=== PATIENT | female | born 1945 | race Caucasian/White ===

== ENCOUNTER 2017-09-26 12:09 | Inpatient (IN) | payer OTHER ==
--- NOTE | 2017-09-26 13:09 | EDPHY ---
H & P Stated Complaint: acute manic bipolar episode needs help with management Source: Patient, Family (Daughter) Exam Limitations: Clinical condition - Medical/Surgical History Hx Asthma: No Hx Chronic Respiratory Disease: No Hx Diabetes: No Hx Cardiac Disease: No Hx Renal Disease: No Hx Cirrhosis: No Hx Alcoholism: No Hx HIV/AIDS: No Hx Splenectomy or Spleen Trauma: No Other PMH: bipolar, kidney disease from [place], hypothyroid, infammatory disease - Social History Smoking Status: Never smoked Time Seen by Provider: 09/26/17 13:09 HPI/ROS: HPI: This is a 72-year-old female who presents with Chief Complaint: acute manic bipolar episode needs help with management Location: psych Quality: Mirella Duration: 1 month Signs and Symptoms:+ auditory hallucination, + paranoia, + insomnia, + delusional Timing: Worsening, acute on chronic Severity: Severe Context: Patient has a history of bipolar 1 disorder diagnosed over 40 years ago, presents accompanied by her daughter, who reports 1 month episode of manic episode that is rapidly worsening over the last few days. Daughter reports that patient is paranoid and is hearing auditory hallucinations. She is not sleeping. She is attempting to drive on psychiatric medications. She is very difficult to get along with and has had increased family discordance. and daughter do not feel safe with her at home. She has had inpatient psychiatric hospitalization in the past for similar episode of mirella. Patient reports that she is compliant with her psychiatric medications and daughter reports that she is noncompliant with taking her psychiatric medications. Denies any alcohol or drug use. Modifying Factors: Regular psychiatric medication Comment: ROS: see HPI Constitutional: No fever, no chills, no weight loss Eyes: No blurred vision Respiratory: No shortness of breath, no cough Cardiovascular: No chest pain Gastrointestinal: No nausea, no vomiting, no diarrhea Genitourinary: No dysuria Extremities: No myalgias Neurologic: No weakness, no numbness Skin: No rashes Hematologic: No bruising, no bleeding MEDICAL/SURGICAL/SOCIAL HISTORY: Medical history: bipolar, kidney disease from [place], hypothyroid, infammatory disease Surgical history: Denies Social history: with children. Family history noncontributory. CONSTITUTIONAL: Tidy, argumentative, elderly white female, awake and alert, no obvious distress HEENT: Atraumatic and normocephalic, PERRL, EOMI. Nares patent; no rhinorrhea; no nasal mucosal edema. Tympanic membranes clear. Oropharynx clear, no exudate and moist pink mucosa. Airway patent. No lymphadenopathy. No meningismus. Cardiovascular: Normal S1/S2, mild tachycardia, regular rhythm, without murmur rub or gallop. PULMONARY/CHEST: Symmetrical and nontender. Clear to auscultation bilaterally. Good air movement. No accessory muscle usage. ABDOMEN: Soft, nondistended, nontender, no rebound, no guarding, no peritoneal signs, no masses or organomegaly. No CVAT. EXTREMITIES: 2/2 pulses, strength 5/5, no deformities, no clubbing, no cyanosis or edema. NEUROLOGICAL: no focal neuro deficits. GCS 15. SKIN: Warm and dry, no erythema. no rash. Good capillary refill. PSYCH: Poor eye contact, + flight of ideas, tangential disorganized thought process, poor insight and judgment, + auditory hallucinations, no visual hallucinations, no suicidal ideation with a plan, no homicidal ideation, + paranoia ([place]) Constitutional: Initial Vital Signs Temperature (C) 36.7 C 09/26/17 12:14 Heart Rate 105 H 09/26/17 12:14 Respiratory Rate 18 09/26/17 12:14 Blood Pressure 172/106 H 09/26/17 12:14 O2 Sat (%) 97 09/26/17 12:14 O2 Delivery Mode Room Air Allergies/Adverse Reactions: aspirin Allergy (Verified 09/26/17 18:16) epinephrine Allergy (Verified 09/26/17 18:16) lidocaine [From [employer]] Allergy (Verified 09/26/17 18:16) Home Medications: Medication Instructions Recorded Acetaminophen [Tylenol ES 500 mg 500 - 1,000 mg PO Q6H PRN 09/26/17 (*)] Duloxetine HCl [Cymbalta] 20 mg PO BID 09/26/17 Furosemide [Lasix 20 MG (*)] 20 mg PO DAILY 09/26/17 Herbals/Supplements -Info Only 1 ea PO DAILY 09/26/17 LORazepam [Ativan (*)] 0.5 mg PO BID@12,17 PRN 09/26/17 LORazepam [Ativan (*)] 1 mg PO HS 09/26/17 Levothyroxine [Synthroid 75 mcg 75 mcg PO DAILY06 09/26/17 (*)] Nicotine Polacrilex [Nicorette gum 4 mg BC PRN PRN 09/26/17 (*)] OLANZapine [ZyPREXA 2.5 mg (*)] 2.5 mg PO HS 09/26/17 OLANZapine [Zyprexa] 5 mg PO HS 09/26/17 Vayacog 1 ea PO DAILY 09/26/17 Vitamin E Acetate [VITAMIN E] 400 unit PO HS 09/26/17 Medical Decision Making ED Course/Re-evaluation: Placed on M1 hold upon arrival due to patient being gravely disabled. Labs and UDS ordered. Ordered Zyprexa but daughter asked that we withhold as it causes significant sedation in the patient. Labs reviewed and grossly unremarkable. Waiting for urine drug screen. 1445: TLC at bedside. Urine drug screen is positive for benzodiazepine and patient has a prescription for Ativan. It is recommended that the patient be admitted for inpatient hospitalization. Dr. Funes has accepted patient at [address] [place] [address]. EMATLA form completed. This patient was seen under the supervision of my secondary supervising physician. I evaluated care for this patient independently. Discussed this patient with Dr. Jenkins. (Roro Morgan) The patient was evaluated and managed by the physician instruction assistant principal. I have reviewed this chart and I agree with the findings and plan of care as documented , as indicated by my signature. I am the secondary supervising physician. ( Jayla Jenkins) Differential Diagnosis: Differential diagnosis includes but is not limited to schizoaffective disorders , schizophrenia, bipolar disorder, mirella, psychosis. (Roro Morgan) - Data Points Laboratory Results: Laboratory Results 09/26/17 13:33 09/26/17 13:36 Medications Given: Acetaminophen (Tylenol) 500 - 1,000 mg PO Q6H PRN PRN Reason: Pain, Mild use first Stop: 03/26/18 11:04 Last Admin: 09/27/17 11:11 Dose: 500 mg Duloxetine HCl (Cymbalta) 20 mg PO DAILY BEV Stop: 03/26/18 08:59 Last Admin: 09/27/17 09:28 Dose: 20 mg Furosemide (Lasix) 20 mg PO DAILY BEV Stop: 03/26/18 08:59 Last Admin: 09/27/17 09:28 Dose: 20 mg Levothyroxine Sodium (Synthroid) 75 mcg PO DAILY06 BEV Stop: 03/26/18 08:59 Last Admin: 09/27/17 09:29 Dose: 75 mcg Lorazepam (Ativan) 0.5 - 1 mg PO Q4HRS PRN PRN Reason: Anxiety, Able to Take PO Stop: 03/25/18 19:54 Last Admin: 09/26/17 21:26 Dose: 1 mg Miscellaneous Medication (Vayacog) 1 ea PO DAILY BEV Stop: 03/26/18 08:59 Last Admin: 09/27/17 09:28 Dose: Not Given Discontinued Medications Olanzapine (Zyprexa Zydis) 5 mg PO EDNOW ONE Stop: 09/26/17 13:49 Last Admin: 09/26/17 14:02 Dose: Not Given Olanzapine (Zyprexa Zydis) 10 mg PO ONCE ONE Stop: 09/26/17 20:01 Last Admin: 09/26/17 21:26 Dose: 10 mg Departure - Departure Disposition: [facility] IP Clinical Impression: Severe bipolar affective disorder with psychosis, Bipolar disorder with severe mirella Condition: Fair
[2017-09-26] MEDS ORDERED: OLANZapine DISINTEGR 5 MG TAB PO ONE (13:48)
[2017-09-26 14:00] LABS: PLATELET COUNT 286 10^3/uL (150-400)
[2017-09-26] MEDS ORDERED: MAGNESIUM HYDROXIDE 30 ML UDCUP PO PRN (19:55)
[2017-09-26] MEDS ORDERED: MAG HYDROX/AL HYDROX/SIMETH 30 ML UDCUP PO PRN (19:55)
[2017-09-26] MEDS ORDERED: ACETAMINOPHEN 325 MG TAB PO PRN (19:55)
[2017-09-26] MEDS ORDERED: OLANZapine DISINTEGR 5 MG TAB PO PRN (19:56)
[2017-09-26] MEDS ORDERED: OLANZapine DISINTEGR 10 MG TAB PO ONE (20:00)
[2017-09-26] MEDS: LORazepam 0.5 MG TAB PO PRN (21:26)
--- NOTE | 2017-09-26 22:00 | ASMTTLCEVL ---
TLC Evaluation - Basic Information Evaluation Start Date and 09/26/2017 03:00 PM Time Hospital Status Answers: M1 Hold 72-hr M1 Hold Start Date 09/26/2017 01:50 PM and Time Patient statement Notes: "A manic episode." Narrative Notes: Pt is a 72 year old female presenting voluntarily with her daughter with worsening symptoms of mirella. Per daughter, for the past month, pt appears" normal one minute then depressed, delusional and psychotic" DOC states that pt becomes mistrusting of her HOC and believes her is going to kill her, will poison her food and does not want to take her medications if he gives them to her. DOC states that pt also has become paranoid around electronics. DOC states pt is unable to care for herself, not safe to be alone and her is not able to care for her. Per DOC, pt has long periods of stability and it appears her symptoms get worse every September and February. DOC states that pt recently had some med changes, but pt does not seem to be responding. DOC stated pt has had 3 psych evaluations in the past 2 weeks but she has not been hospitalized. Diagnosis History Notes: Pt has a hx of bipolar disorder. Prior suicide attempts Notes: Pt denies any prior SI and states she does not have SI now. DOC states that pt has made threats and written notes in the past. Prior hospitalizations Notes: Pt has a hx of 3 prior hospitalizations. The last one was 18 years ago. Treatment Responses Notes: Unk History of violence Notes: Pt denies any thoughts of HI. Psychiatrist: Dr Pato Stewart Medications (name, dosage, route, freq uency) Notes: Vayacog 310mg in AM; Levothyroxine .05 mg in AM; Cymbalta 20 mg in AM; Flurosemide 20 mg in AM; Tumeric 1 capsule in AM; Vitamin D3 2000 I.U. in PM;Cymbalta 20 mg in PM; Lorazepam 1 mg in PM; Vitamin E 400 I.U; Zyprexa 7.5 mg. Lorazepam .5 mg lunch and dinner. Tylenol PRN. Allergies/Reaction Notes: Aspirin, Lidocain and Novacaine Sleep Notes: WNL Appetite Notes: WNL Medical/Surgical history Notes: Pt reports a hx of arthritis, kidney disease ( advanced stages) and a "significant inflammatory disease) Pt has also had pneumonia twice. 4 years ago pt had to have surgery on an infected abscess she had on her lung after complications with pneumonia. 1 year ago, pt was hospitalized for high calcium levels for 10 days. Substance use history (frequency, intensity, his tory, duration) Notes: Pt denied any substance abuse hx. Pt stated she drinks ETOH on occasion. Utox was negative for all substances. Bal was .0. Family composition Notes: Pt's family consists of her adult daughter and . Need for family Answers: No participation in patient's care Family psychiatric/substance abuse history Notes: Pt stated her FOC "probally had bipolar, but it was never dx." Pt also reports that her paternal GMOC had bipolar disorder, although she was never dx. Developmental history Notes: Pt stated she grew up in [place] with both parents. Pt reports having a good relationship with her mother but not her father. Pt denies any childhood abuse. Pt reports she may have had concussions but was unable to give details. Abuse concerns Answers: None Marital status/children Notes: Pt has been for 50 years and has 1 adult daughter. Living situation Notes: Pt lives in [place] with her . Sexual history/orientation Notes: Heterosexual. Peer support/family strengths Notes: Pt stated, " Sometimes, I don't know." Education level/history Notes: Pt has a B.S in Education and a minor in science and social studies. Work history Notes: Pt is a retired high school counselor. Notes: None Legal Notes: None reported. Rastafarian/Spiritual Notes: None that would intefere with tx. Leisure Notes: Pt stated she enjoys reading. Collateral Notes: Daughter Taya. TLC Evaluation - Mental Status Exam Appearance: Answers: Appropriate Eye Contact: Answers: Good/Direct Mood: Answers: Irritable Affect: Answers: Agitated Guarded Behavior: Answers: Uncooperative Speech: Answers: Relevant Thought Process: Answers: Distracted Insight: Answers: Poor Judgement: Answers: Poor Manic Signs/Symptoms Answers: Irritability Mood Swings Delusions: Answers: Paranoid Ideation Pt reported to have Answers: No suicidal/self-injuring ideation/behavior? Pt reported to be making Answers: No suicidal/self-injuring threats? Pt reported to have Answers: No aggression/assault ideation/behavior? Pt reported to be making Answers: No aggression/assault threats? Pt exhibits inability to Answers: Yes care for self/grave disability? Ideation/behavior is Answers: Yes chronic? Patient has a specific Answers: No plan? History of Answers: Yes suicidal/self-injuring ideation, behavior, or threats? History of Answers: No aggressive/assaultive ideation, behavior, or threats? History of serious Answers: No physical harm to self/others while in treatment setting? TLC Evaluation - Suicide/Homicide Risk Suicide Risk Factors: Answers: < 20 or > 40 Years of Age Bipolar Disorder Rapid Mood Shifts Homicide/violence risk Answers: None factors: Current Suicidal Answers: No Ideation? Current Suicidal Ideation Answers: No in the Past 48 Hours? Current Suicidal Answers: No Ideation, Worst Ever? Suicide Internal Answers: Absence of Psychosis Protective Factors: Suicide External Answers: Responsibility to Protective Factors: Children Ranking of patient's Answers: Moderate suicidal risk: Ranking of patient's Answers: Low homicidal risk: TLC Evaluation - Wrap-up AXIS I Diagnosis (include DSM-V and ICD-10 codes), must also be entered in [employer], which is the source of truth. Notes: BIPOLAR I DISORDER, SEVERE 296.43 (F31.13) In consultation with [facility] ED physician, Jayla Jenkins MD , and on-call psychiatrist, Neil Borden MD, both concurred that pt appears to meet 27-65 criteria requiring psychiatric hospitalization as pt appears to be an imminent risk of harm to self/gravely disabled due to a mental illness condition. Pt was given the 3N prohibited belongings list while in the ED. Evaluation End Date and 09/26/2017 10:00 PM Time (HH:JAMIR): Date Signed: 09/26/2017 09:59 PM Electronically Signed By:Johnna Oneil
--- NOTE | 2017-09-26 22:01 | ASMTTCLDSP ---
TLC Discharge Disposition Disposition: Answers: Admit Discharge Concerns/Recommendations: Notes: In consultation with [facility] ED physician, Jayla Jenkins MD , and on-call psychiatrist, Neil Borden MD, both concurred that pt appears to meet 27-65 criteria requiring psychiatric hospitalization as pt appears to be an imminent risk of harm to self/gravely disabled due to a mental illness condition. Pt was given the 3N prohibited belongings list while in the ED. Was patient given the Answers: Yes Inpatient Behavioral Health Prohibited Belongings List while in the ED? For inpatient Neil Borden MD admission, the following psychiatrist agreed to accept patient for admission to Behavioral Health ([facility]): Date and time M1 hold 09/26/2017 01:50 PM vacated (time format is hh:mm): Type of Hold: Answers: M1/72-hour Hold Hold initiated by: Answers: ED Physician Date Signed: 09/26/2017 10:00 PM Electronically Signed By:Johnna Oneil
[2017-09-27] MEDS ORDERED: LEVOTHYROXINE 75 MCG TAB PO SCH (09:00)
[2017-09-27] MEDS: DULoxetine 20 MG CAP PO SCH (09:28)
[2017-09-27] MEDS: VAYACOG PO SCH (09:28)
[2017-09-27] MEDS: FUROSEMIDE 20 MG TAB PO SCH (09:28)
[2017-09-27] MEDS: ACETAMINOPHEN 500 MG TAB PO PRN ×2 (11:11→23:16)
--- NOTE | 2017-09-27 11:12 | ASMTBHMTP ---
Master Treatment Plan Master Treatment Plan Answers: Mood Instability with for: Psychosis Date: 09/27/2017 Diagnosis on Admission: Schizoaffective Disorder Expected length of stay: 3-5 days Reason for admission: Notes: Pt is a 72 yoa female brought to ED by daughter due to increased depression, delusional and psychotic symptoms, etc. DOC and HOC states that patient becomes mistrusting of them and client believes that they are trying to kill her. Client has an out-side provider Dr. Pato Stewart. Also, client has had three different psych evaluations in the past two weeks but she has not been hospitalized. Patient's stated presenting problems: Notes: I "couldn't answer that part." Patient's goals for treatment: Notes: To leave tomorrow Patient's strengths: Notes: none Identify supports outside of hospital: Notes: My daughter, & family Discharge criteria: Notes: Patient will demonstrate more stable mood by discharge. Initial disposition plan/considerations: Notes: "return home and don't know what to do do from there." Master Treatment Plan Required Signatures Psychiatrist signature: Answers: Psychiatrist: RN on-shift signature: Answers: RN: Patient signature: Answers: Patient: Date Signed: 09/27/2017 11:11 AM Electronically Signed By:Cornelio Draper
[2017-09-27] MEDS: NICOTINE POLACRILEX 2 MG GUM B PRN ×3 (16:16→21:54)
--- NOTE | 2017-09-27 18:26 | BAPA ---
[f rep st] ADMISSION PSYCHIATRIC ASSESSMENT DATE OF SERVICE: 09/27/2017 PLACE OF EVALUATION: Inpatient Behavioral Health Services Unit at [facility]. TIME SPENT: 120 minutes. SOURCES OF INFORMATION: 1. TLC report. 2. Personal interview with the patient. 3. Interview with the patient's and daughter. CHIEF COMPLAINT: "It's a vicious augustine. I'm covering up for my . I'm afraid he may have ho mosexual tendencies." HISTORY OF PRESENT ILLNESS: The patient is a 72-year-old female with a history of bipolar disorder. She was brought in by family due to worsening manic symptoms over the past month. Both th e patient and her family indicate that she typically has increased mood instability in February and of every year. They state, however, that this time it was much worse than usual. The patient wa s exhibiting erratic and paranoid behavior, was extremely irritable, and was accusing family members of trying to harm her. She believes that her was acting against her and may have been poison ing her food. She states that she does not know why this would be, except "either for sex or money, I don't know." She states that he is "just so controlling I can't trust him." The patient's and daughter indicate that he attempted to care for her for most of this month, but that he was beco dulce maria unable to ensure her safety within the outpatient setting. I discussed the [facility], Dr. Pato Montiel, who also indicates that he noticed her mood declini ng over the last month. He re-started Zyprexa at 2.5 mg, and then 7.5 mg, which did not arrest this progression. She apparently had been on a regimen of Wellbutrin and Cymbalta for the past year witho ut a mood stabilizer and had done adequately well. The Zyprexa was not re-introduced until approxim tel 2 weeks ago. The patient's and daughter state that they did not notice any benefit with this. The patient is unable to give additional history, stating that she does not believe she is do ing too poorly, and that she believes that her 's concerns are overblown and unfair, and does mention that she does not trust his opinion at this time. When interviewed in the family meeting, katey ferraro actually was more conciliatory and pleasant and did not make any of these accusations. PAST PSYCHIATRIC HISTORY: Significant for 40 years of symptoms, with her 1st treatment occurring abo ak 30 years ago. She was treated primarily with lithium and did very well for a number of years, unt il she developed some renal insufficiency, and this was stopped. She has seen Dr. Montiel for the pa st approximately 7 years and has been maintained on the antidepressants and intermittent Zyprexa. In my discussion with him today, he states that it would clearly be in her interest to establish hersarthur ta on an alternative mood stabilizer. The patient has been hospitalized in the past, but the last was 18 years ago. She has had 3 psychiatric evaluations in the past 2 weeks, including going to the [facility] Emergency Department at one point, but they held her overnight and then discharged her to home. ALLERGIES: 1. Listed to: a. Aspirin. b. Epinephrine. c. Lidocaine. 2. It is also noted that she had a severe skin eruption with Lamictal in the past. 3. She may also be allergic to sulfa. CURRENT MEDICATIONS: 1. Cymbalta 20 mg b.i.d. 2. Lorazepam 0.5 mg as needed and 1 mg at h.s. 3. Nicotine gum 4 mg p.r.n. It is noted that the patient is not a smoker, but has used nicotine gum for some time. 4. Zyprexa 7.5 mg at h.s. 5. Lasix 20 mg daily for kidney disease. 6. Levothyroxine 75 mcg daily at 0600 hours. 7. Vayacog 1 daily. 8. Vitamin E 400 units at h.s. PAST MEDICAL HISTORY: Significant for: 1. Her chronic renal insufficiency that she states is from lithium. 2. Hyperthyroidism. 3. 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 SOCIAL HISTORY: The patient lives in [place] with her of 50 years in a home they own. They spend half the year in [place], where they also have a home. She is a retired schoolteacher, as is her . They have 1 adult daughter who lives locally, in [place]. The patient states that katey ferraro has no specific stressors, other than her perceived stress with her relationship with her , and enjoys her life. SUBSTANCE ABUSE HISTORY: Noncontributory. FAMILY HISTORY: The patient states that her father and paternal grandmother had bipolar disorder, th ough were untreated. She states that her father did take Depakote for 4 days one time. ADMISSION LABORATORIES: 1. CBC is normal. Serum chemistries are normal, with the exception of BUN up at 26 and creatinine u p at 1.2. Calcium is high at 10.5, with the upper limits of normal being 10.4. 2. Urine drug screen is positive for benzodiazepines only. 3. Alcohol is less than detectable. MENTAL STATUS EXAMINATION: A well groomed, appropriately dressed, healthy-appearing, femal e. She is pleasant and engaging, displaying normal social skills and calm and pleasant demeanor. Katey ferraro is a little guarded or even paranoid at times, stopping the interview and listening, but will not s ay what she is listening for. She does ask at one point if I am recording the session, which I indic ate to her I am not. She does state that she does not trust her and does not believe she wili uld have been sent to the hospital. Her speech is normal in production, tone, rate, and flow. Her a ffect is euthymic, stable, and appropriate. Her mood is described as "good." Her thought process is generally linear and goal directed, though she does wander at times. She also interrupts frequently during both our individual session and the family meeting to talk about things that are slightly off topic. She is verbally re-directable from this behavior. Her thought content reveals the paranoid thinking about her , which she does not mention during the family meeting, and, when she menti ons it during the individual session, she states "but I could be wrong about that." She is alert and oriented to person, place, time, and situation. There is no evidence of delirium or dementia. Her intellect appears to be at least average, as evidenced by her educational and occupational histories, fund of knowledge, and vocabulary. She denies any thoughts of suicide, homicide, or violence. Her insight and judgment appear to be marginal at this time. IMPRESSION: 1. Bipolar 1 disorder, most recent episode manic, severe, with psychosis, chronic illness, recurrent illness, possible marital strife, though likely related only to her acute manic state. 2. Renal insufficiency. 3. History lithium toxicity. The patient is a pleasant 72-year-old female who presents at this time with a recurrence of her longstanding bipolar illness. She was being treated with 2 antidepressants and no mood stabiliz er, which may have predicted a recurrence of her mirella at some point. Regardless, her family states that she has these episodes every February and September regardless. She has not responded to about 2 wee ks therapy of Zyprexa up to 7.5 mg. I have discussed the case with Dr. Montiel, who is in agreement to titrate the Zyprexa to more an effective anti-manic dose, and initiate treatment with an alternati ve mood stabilizer that would be better long-term. I discussed this at length with the patient and h er family, and they agreed to a trial of Depakote for this purpose. The risks, benefits, and alterna tives of Depakote were reviewed with all. PLAN: 1. Admit to the behavioral health services inpatient unit on an M1 hold. 2. [place] medication changes as above. 3. Engage the patient in individual, group, and milieu psychotherapies, and monitor closely for any mood variability, sundowning, or other evidence of unstable illness. ESTIMATED LENGTH OF STAY: Five to 7 days. /[id number]/MODL
--- NOTE | 2017-09-27 18:45 | PDHOSCONS ---
History and Physical - Chief Complaint Acute sarita - History of Present Illness Primary care provider: Dr. Seymour Jett HPI: 72-year-old female presenting with acute sarita characterized as increased paranoia, auditory hallucinations, and associated inability to sleep with the onset of escalation several days prior, but the overall duration reported as approximately 1 month by family. The patient's family believes that she is becoming unsafe at home, and her symptoms resulting in increased discord in her house. The patient reports that she is adherent to all of her medications, but her daughter reports that she is non adherent. Patient otherwise denies any symptoms, and she reports that she recently returned from an [place] 2 and half weeks ago. She denies any change in her urinary output and denies any other systemic, physical symptoms. History Information - Allergies/Home Medication List Allergies/Adverse Reactions: aspirin Allergy (Verified 09/26/17 18:16) epinephrine Allergy (Verified 09/26/17 18:16) lidocaine [From [facility]] Allergy (Verified 09/26/17 18:16) Home Medications: Acetaminophen [Tylenol ES 500 mg (*)] 500 - 1,000 mg PO Q6H PRN 09/26/17 [Last Taken 09/24/17] Duloxetine HCl [Cymbalta] 20 mg PO BID 09/26/17 [Last Taken 09/25/17] Furosemide [Lasix 20 MG (*)] 20 mg PO DAILY 09/26/17 [Last Taken 09/25/17] Herbals/Supplements -Info Only 1 ea PO DAILY 09/26/17 [Last Taken 09/25/17] LORazepam [Ativan (*)] 0.5 mg PO BID@12,17 PRN 09/26/17 [Last Taken 09/25/17] LORazepam [Ativan (*)] 1 mg PO HS 09/26/17 [Last Taken 09/25/17] Levothyroxine [Synthroid 75 mcg (*)] 75 mcg PO DAILY06 09/26/17 [Last Taken ] Nicotine Polacrilex [Nicorette gum (*)] 4 mg BC PRN PRN 09/26/17 [Last Taken 15:00] OLANZapine [ZyPREXA 2.5 mg (*)] 2.5 mg PO HS 09/26/17 [Last Taken 09/25/17] OLANZapine [Zyprexa] 5 mg PO HS 09/26/17 [Last Taken 09/25/17] Vayacog 1 ea PO DAILY 09/26/17 [Last Taken 09/26/17] Vitamin E Acetate [VITAMIN E] 400 unit PO HS 09/26/17 [Last Taken 09/25/17] I have personally reviewed and updated: family history, medical history, social history, surgical history - Past Medical History Additional medical history: Bipolar disease type 1 x 40 years. 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 Hypothyroidism - Surgical History Additional surgical history: Right lung empyema - Family History Additional family history: No recent sick family contacts - Social History Smoking Status: Never smoked Alcohol Use: Occasionally Drug Use: None Additional social history: Lives with , recently traveled to [place] Review of Systems Review of Systems: ROS: 10pt was reviewed & negative except for what was stated in HPI & below Neurological: Reports: other (Auditory hallucinations, paranoia, insomnia) Physical Exam Physical Exam: Temp Pulse Resp BP Pulse Ox 36.6 C 55 L 18 141/79 H 95 09/27/17 06:00 09/27/17 06:00 09/27/17 06:00 09/27/17 06:00 09/27/17 06:00 Constitutional: no apparent distress, appears nourished, not in pain Eyes: PERRL, anicteric sclera, EOMI Ears, Nose, Mouth, Throat: moist mucous membranes, hearing normal, ears appear normal, no oral mucosal ulcers Cardiovascular: regular rate and rhythym, no murmur, rub, or gallop, No edema Respiratory: no respiratory distress, no rales or rhonchi, clear to auscultation Gastrointestinal: normoactive bowel sounds, soft, non-tender abdomen, no palpable masses Neurologic: AAOx3, sensation intact bilaterally, No weakness Psychiatric: interacting appropriately, not anxious, not encephalopathic, thought process linear, poor insight, No agitated Lab Data & Imaging Review 09/26/17 13:33 09/26/17 13:33 WBC 7.12 10^3/uL (3.80-9.50) 09/26/17 13:33 RBC 4.81 10^6/uL (4.18-5.33) 09/26/17 13:33 Hgb 16.0 g/dL (12.6-16.3) 09/26/17 13:33 Hct 47.5 % (38.0-47.0) H 09/26/17 13:33 MCV 98.8 fL (81.5-99.8) 09/26/17 13:33 MCH 33.3 pg (27.9-34.1) 09/26/17 13:33 MCHC 33.7 g/dL (32.4-36.7) 09/26/17 13:33 RDW 12.7 % (11.5-15.2) 09/26/17 13:33 Plt Count 286 10^3/uL (150-400) 09/26/17 13:33 MPV 9.4 fL (8.7-11.7) 09/26/17 13:33 Neut % (Auto) 60.9 % (39.3-74.2) 09/26/17 13:33 Lymph % (Auto) 26.7 % (15.0-45.0) 09/26/17 13:33 [place] % (Auto) 7.9 % (4.5-13.0) 09/26/17 13:33 Eos % (Auto) 2.8 % (0.6-7.6) 09/26/17 13:33 Baso % (Auto) 1.4 % (0.3-1.7) 09/26/17 13:33 Nucleat RBC Rel Count 0.0 % (0.0-0.2) 09/26/17 13:33 Absolute Neuts (auto) 4.34 10^3/uL (1.70-6.50) 09/26/17 13:33 Absolute Lymphs (auto) 1.90 10^3/uL (1.00-3.00) 09/26/17 13:33 Absolute Monos (auto) 0.56 10^3/uL (0.30-0.80) 09/26/17 13:33 Absolute Eos (auto) 0.20 10^3/uL (0.03-0.40) 09/26/17 13:33 Absolute Basos (auto) 0.10 10^3/uL (0.02-0.10) 09/26/17 13:33 Absolute Nucleated RBC 0.00 10^3/uL (0-0.01) 09/26/17 13:33 Immature Gran % 0.3 % (0.0-1.1) 09/26/17 13:33 Immature Gran # 0.02 10^3/uL (0.00-0.10) 09/26/17 13:33 Turbidity Cancelled 09/26/17 13:36 Sodium 139 mEq/L (135-145) 09/26/17 13:33 Potassium 4.2 mEq/L (3.3-5.0) 09/26/17 13:33 Chloride 101 mEq/L (97-110) 09/26/17 13:33 Carbon Dioxide 27 mEq/l (22-31) 09/26/17 13:33 Anion Gap 11 mEq/L (8-16) 09/26/17 13:33 BUN 26 mg/dL (7-23) H 09/26/17 13:33 Creatinine 1.2 mg/dL (0.6-1.0) H 09/26/17 13:33 Estimated GFR 44 09/26/17 13:33 Glucose 77 mg/dL (70-100) 09/26/17 13:33 Calcium 10.5 mg/dL (8.5-10.4) H 09/26/17 13:33 Urine Opiates Screen NEGATIVE (NEGATIVE) 09/26/17 13:48 Urine Barbiturates NEGATIVE (NEGATIVE) 09/26/17 13:48 Ur Phencyclidine Scrn NEGATIVE (NEGATIVE) 09/26/17 13:48 Ur Amphetamine Screen NEGATIVE (NEGATIVE) 09/26/17 13:48 U Benzodiazepines Scrn NON-NEGATIVE (NEGATIVE) H 09/26/17 13:48 Urine Cocaine Screen NEGATIVE (NEGATIVE) 09/26/17 13:48 U Marijuana (THC) Screen NEGATIVE (NEGATIVE) 09/26/17 13:48 Ethyl Alcohol < 10 mg/dL (0-10) 09/26/17 13:36 Assessment & Plan Assessment: 72-year-old female presents with acute manic episode in the setting of bipolar disease type 1 Plan: 1. Sarita. Acute, in the setting of bipolar disease type 1, unclear precipitant , reviewed outside records including 09/26/2017 emergency department report by Roro Morgan, emergency department provider, reports the patient was placed on M1 hold with acute, grave disability secondary to sarita -tox screen negative except for benzodiazepines which has most likely been use to, patient's behavior -defer diagnosis and treatment strategy to primary mental health team 2. Chronic kidney disease stage 3. Patient is unable to recall her exact baseline creatinine level, but I suspect that her level of disease is stage III , with stable electrolytes and serum creatinine level of 1.2 with reportedly normal oral intake of solids and liquids as well as regular urine output -patient has mild lower extremity edema, most likely secondary to her disease process -recommend non pharmacologic methods of edema management as first-line therapy for patient who may otherwise be at risk for worsening renal function if she continues to require lithium or other potentially offending mental health medication -recommend that her primary care provider work with a test and turn up technician, [facility] referral provided in discharge summary 3. Hypothyroidism. Continue home medication Hospital Medicine will sign off on this patient's care, please page if further questions arise.
[2017-09-27] MEDS: DIVALPROEX ER 500 MG TAB PO SCH (21:37)
[2017-09-27] MEDS: LORazepam 1 MG TAB PO SCH (21:38)
[2017-09-27] MEDS: OLANZapine 5 MG TAB PO SCH (21:39)
[2017-09-27] MEDS: VITAMIN E ACETATE 400 UNIT PO SCH (21:41)
[2017-09-28] MEDS: LORazepam 0.5 MG TAB PO PRN (01:19)
--- NOTE | 2017-09-28 06:41 | PDMN ---
Medical Necessity Medical necessity: Pt meets INPT criteria per MD and [facility] [id number] Bipolar Disorders, Adult: Inpatient Care (Bipolar 1 disorder, most recent episode manic , severe, with psychosis, chronic illness, recurrent illness; M1 hold; renal insufficiency).
[2017-09-28] MEDS: VAYACOG PO SCH (07:39)
[2017-09-28] MEDS: DULoxetine 20 MG CAP PO SCH (08:23)
[2017-09-28] MEDS: FUROSEMIDE 20 MG TAB PO SCH (08:23)
[2017-09-28] MEDS: LEVOTHYROXINE 75 MCG TAB PO SCH (09:49)
[2017-09-28] MEDS: NICOTINE POLACRILEX 2 MG GUM B PRN ×2 (10:08→12:53)
[2017-09-28] MEDS: ACETAMINOPHEN 500 MG TAB PO PRN ×3 (12:50→22:13)
--- NOTE | 2017-09-28 13:20 | ASMTCMCOM ---
CM Note CM Note Notes: Pt. was taking a nap when CC entered her room. She reported not sleeping well last night after she was given Depakote She said that she was up until 2:15am and that she is very tired. She is going to discuss this with Dr. Borden as she thinks she was on the med. in the past and had the same reaction. She reported that she is too tired to continue with the conversation so CC left the room. Date Signed: 09/28/2017 01:19 PM Electronically Signed By:Destiny Leigh
--- NOTE | 2017-09-28 17:10 | SOAPPROG ---
SOAP Progress Note Assessment/Plan: Assessment: Plan: 09/28/17 17:12 Mood: Stabilizing. Tolerating VPA well. Will titrate VPA to 750mg, continue Zyprexa at 10mg for now due to continued delusions, monitor. Subjective: Pt seen, discussed with staff. Reports feeling tired, just awakened from a two hour nap. Slept 7+ hours last night. Tolerated VPA well with no SE's. I discussed with her the likelihood that the meds are calming her mind enough for it to catch up on needed rest. She continues to discuss her mistrust of her . She states, "I think he must have been trying to drive me crazy. I guess he got what he wanted, now I'm in here." She states she is sure of this "but no one else will believe it." Staff notes her to be mildly paranoid, questioning whether the nicotine gum was genuine because it was a different shape than she is used to. She is eating and drinking adequately. Objective: Vital Signs Temp Pulse Resp BP Pulse Ox 36.3 C 101 H 18 151/65 H 95 09/28/17 06:00 09/28/17 10:28 09/28/17 10:28 09/28/17 10:28 09/28/17 10:28 MSE: Adequately groomed, coop. Affect is euthymic, stable, approp. Mood is "fine." TP is linear, though some continued perseveration on persecutory themes. TC reveals persecutory/paranoid thoughts involving her trying to harm her. - Time Spent With Patient Time Spent With Patient: 25" ICD10 Worksheet Patient Problems: Problems Problem Status Onset Bipolar disorder with severe mirella Acute Severe bipolar affective disorder with psychosis Acute
[2017-09-28] MEDS: DIVALPROEX ER 250 MG TAB PO SCH ×2 (19:02→21:27)
[2017-09-28] MEDS: DIVALPROEX ER 500 MG TAB PO SCH (19:03)
[2017-09-28] MEDS: VITAMIN E ACETATE 400 UNIT PO SCH (21:05)
[2017-09-28] MEDS: OLANZapine 5 MG TAB PO SCH (21:27)
[2017-09-28] MEDS: LORazepam 1 MG TAB PO SCH (21:27)
[2017-09-29] MEDS: DULoxetine 20 MG CAP PO SCH (09:44)
[2017-09-29] MEDS: FUROSEMIDE 20 MG TAB PO SCH (09:44)
[2017-09-29] MEDS: LEVOTHYROXINE 75 MCG TAB PO SCH (09:44)
[2017-09-29] MEDS: ACETAMINOPHEN 500 MG TAB PO PRN ×2 (09:45→20:08)
[2017-09-29] MEDS: VAYACOG PO SCH (11:22)
--- NOTE | 2017-09-29 12:40 | ASMTCMCOM ---
CM Note CM Note Notes: Pt. reports feeling "fine". Pt.. stated she slept "like a dream". Pt. reports eating well and attending groups. Pt. reports no issues with her current medications, adding "it's getting better". Pt. stated she wants to discharge today when her visits. Pt. stated when she came into the hospital she was arguing with family, but stated "feel different today". Pt. denied SI, HI, AVH and paranoia. Date Signed: 09/29/2017 12:40 PM Electronically Signed By:Tabitha Rudolph
[2017-09-29] MEDS: NICOTINE POLACRILEX 2 MG GUM B PRN ×2 (13:55→20:11)
[2017-09-29] MEDS: LORazepam 0.5 MG TAB PO PRN (13:55)
--- NOTE | 2017-09-29 14:05 | ASMTBHFAM ---
Notes Note: Notes: Family meeting scheduled for TuesdayOctober 03 at 11:30am with pt., daughter of pt, HOC and staff. Date Signed: 09/29/2017 02:05 PM Electronically Signed By:Tabitha Rudolph
--- NOTE | 2017-09-29 18:20 | SOAPPROG ---
SOAP Progress Note Assessment/Plan: Assessment: Plan: 09/28/17 17:12 Mood: Stabilizing. Tolerating VPA well. Will titrate VPA to 750mg, continue Zyprexa at 10mg for now due to continued delusions, monitor. 09/29/17 18:22 Mood: Improving with VPA. WIll CCM, check level on 10/02/17. Will reassess clinical status on 10/03/17 and finalize d/c plan. Subjective: Pt seen, discussed with staff. Interviewed alone, in treatment planning meeting and with daughter during visiting. She slept well last night, >7hrs. Continues to express concerns that her is acting against her in some way. She is not demonstrating any irritability and is compliant with all medications. She is able to discuss treatment plan and acquiesces to request for additional inpatient treatment. I explained our concern for the ongoing paranoia towards her primary caregiver that makes her feel unsafe in her home, the need to fully stabilize on VPA and check a level on Tuesday and the strong desire by all that she be adequately stable to d/c. Objective: Vital Signs Temp Pulse Resp BP Pulse Ox 36.8 C 93 14 140/70 H 96 09/29/17 06:00 09/29/17 06:00 09/29/17 06:00 09/29/17 06:00 09/29/17 06:00 MSE: Well-groomed, pleasant and coop. Affect is constricted, stable. Mood is "good." TP is generally linear, though she is easily derailed by paranoid thoughts and IOR's. - Time Spent With Patient Time Spent With Patient: 55" ICD10 Worksheet Patient Problems: Problems Problem Status Onset Bipolar disorder with severe mirella Acute Severe bipolar affective disorder with psychosis Acute
[2017-09-29] MEDS: OLANZapine 5 MG TAB PO SCH (21:28)
[2017-09-29] MEDS: DIVALPROEX ER 250 MG TAB PO SCH (21:28)
[2017-09-29] MEDS: VITAMIN E ACETATE 400 UNIT PO SCH (21:29)
[2017-09-29] MEDS: LORazepam 1 MG TAB PO SCH (21:29)
[2017-09-29] MEDS: DIVALPROEX ER 500 MG TAB PO SCH (21:29)
[2017-09-30] MEDS: NICOTINE POLACRILEX 2 MG GUM B PRN ×2 (09:22→13:51)
[2017-09-30] MEDS: ACETAMINOPHEN 500 MG TAB PO PRN ×2 (09:22→13:51)
[2017-09-30] MEDS: DULoxetine 20 MG CAP PO SCH (09:22)
[2017-09-30] MEDS: FUROSEMIDE 20 MG TAB PO SCH (09:22)
[2017-09-30] MEDS: LEVOTHYROXINE 75 MCG TAB PO SCH (11:40)
[2017-09-30] MEDS: VAYACOG PO SCH (11:43)
--- NOTE | 2017-09-30 13:09 | SOAPPROG ---
SOAP Progress Note Assessment/Plan: Assessment: Per Dr. Borden's notes: 09/28/17 17:12 Mood: Stabilizing. Tolerating VPA well. Will titrate VPA to 750mg, continue Zyprexa at 10mg for now due to continued delusions, monitor. 09/29/17 18:22 Mood: Improving with VPA. WIll CCM, check level on 10/02/17. Will reassess clinical status on 10/03/17 and finalize d/c plan. Subjective: Pt seen, discussed with staff. Interviewed alone, in treatment planning meeting and with daughter during visiting. She slept well last night, >7hrs. Continues to express concerns that her is acting against her in some way. She is not demonstrating any irritability and is compliant with all medications. She is able to discuss treatment plan and acquiesces to request for additional inpatient treatment. I explained our concern for the ongoing paranoia towards her primary caregiver that makes her feel unsafe in her home, the need to fully stabilize on VPA and check a level on Tuesday and the strong desire by all that she be adequately stable to d/c. Plan: 09/30/17 13:04 1. Patient less paranoid about , requesting a family meeting with him prior to d/c. She says he's the one who supervises her meds. 2. Patient c/o "grogginess" from VPA and Zyprexa. She denied any other physical complaints or SE's. 3. VPA level on Tuesday. 4. Possible d/c on Tuesday. 5. Voluntary Subjective: Met with patient, reviewed chart and d/w staff. Patient presents calm, pleasant , slightly forgetful. She is less delusional and not as paranoid about her today. She agrees to return home and says her will supervise her meds. She would like CC to talk to her before she goes home. MD assured her this could happen over w/e or on Tuesday prior to d/c. Patient denies any AH/VH, no SI/HI. She complains of some "grogginess" and sedation likely from VPA and Olanzapine. MD assured patient this SE is quite common with both meds, but will likely improve after she has been on VPA longer and with decrease in dose of Zyprexa that Dr. Reyburn recommends be done under supervision from Dr. Stewart. She agreed to continue both meds as prescribed. Objective: Vital Signs Temp Pulse Resp BP Pulse Ox 36.8 C 93 16 158/84 H 98 09/29/17 06:00 09/30/17 06:00 09/30/17 06:00 09/30/17 06:00 09/30/17 06:00 MSE: Affect: Euthymic Mood: "OK" TP: Linear, slightly forgetful TC: Denies any AH/VH, less paranoia, no SI/HI Insight/Judgment: Improving - Time Spent With Patient Time Spent With Patient: 20" - Pending Discharge Pending Discharge Within 24 Hours: No Pending Discharge Within 48 Hours: No ICD10 Worksheet Patient Problems: Problems Problem Status Onset Bipolar disorder with severe mirella Acute Severe bipolar affective disorder with psychosis Acute
--- NOTE | 2017-09-30 14:10 | ASMTBHDC ---
Notes Note: Notes: Follow Up: [facility] Pato Montiel MD [address], [place] [address] ([phone]) Appointment Scheduled: 10/06/2017 @ 09:30AM Date Signed: 09/30/2017 01:03 PM Electronically Signed By:Becca Rubin
[2017-09-30] MEDS: DIVALPROEX ER 500 MG TAB PO SCH (21:20)
[2017-09-30] MEDS: DIVALPROEX ER 250 MG TAB PO SCH (21:21)
[2017-09-30] MEDS: OLANZapine 5 MG TAB PO SCH (21:21)
[2017-09-30] MEDS: LORazepam 1 MG TAB PO SCH (21:21)
[2017-09-30] MEDS: VITAMIN E ACETATE 400 UNIT PO SCH (21:33)
[2017-10-01] MEDS: ACETAMINOPHEN 500 MG TAB PO PRN ×2 (01:05→19:13)
[2017-10-01] MEDS: LORazepam 0.5 MG TAB PO PRN (01:06)
[2017-10-01] MEDS: VAYACOG PO SCH (08:40)
[2017-10-01] MEDS: DULoxetine 20 MG CAP PO SCH (08:40)
[2017-10-01] MEDS: FUROSEMIDE 20 MG TAB PO SCH (08:40)
[2017-10-01] MEDS: LEVOTHYROXINE 75 MCG TAB PO SCH (10:16)
--- NOTE | 2017-10-01 14:56 | SOAPPROG ---
SOAP Progress Note Assessment/Plan: Assessment: Per Dr. Borden's notes: 09/28/17 17:12 Mood: Stabilizing. Tolerating VPA well. Will titrate VPA to 750mg, continue Zyprexa at 10mg for now due to continued delusions, monitor. 09/29/17 18:22 Mood: Improving with VPA. WIll CCM, check level on 10/02/17. Will reassess clinical status on 10/03/17 and finalize d/c plan. Subjective: Pt seen, discussed with staff. Interviewed alone, in treatment planning meeting and with daughter during visiting. She slept well last night, >7hrs. Continues to express concerns that her is acting against her in some way. She is not demonstrating any irritability and is compliant with all medications. She is able to discuss treatment plan and acquiesces to request for additional inpatient treatment. I explained our concern for the ongoing paranoia towards her primary caregiver that makes her feel unsafe in her home, the need to fully stabilize on VPA and check a level on Tuesday and the strong desire by all that she be adequately stable to d/c. Plan: 09/30/17 13:04 1. Patient less paranoid about , requesting a family meeting with him prior to d/c. She says he's the one who supervises her meds. 2. Patient c/o "grogginess" from VPA and Zyprexa. She denied any other physical complaints or SE's. 3. VPA level on Tuesday. 4. Possible d/c on Tuesday. 5. Voluntary 10/01/17 14:52 1. Patient had long visit with her daughter today. Some anxiety about going home. 2. CC to contact patient's to address d/c planning. 3. VPA level tomorrow. 4. Possible d/c on Tuesday. Subjective: Met with patient, reviewed chart and d/w staff. Patient had long visit with her daughter today. She says she can't be in the same room with both her daughter and her b/c she "can't get a word in." She feels that and daughter have too much control over her life, which sometimes leads to paranoia , especially regarding her . However, patient accepts that she counts on her for support and appreciates the fact that he understands her meds better than her and makes sure she takes them as prescribed. Objective: Vital Signs Temp Pulse Resp BP Pulse Ox 36.3 C 99 14 150/70 H 92 10/01/17 06:00 10/01/17 06:00 10/01/17 06:00 10/01/17 06:00 10/01/17 06:00 MSE: Affect: Euthymic Mood: "OK" TP: Tangential, disorganized at times, forgetful TC: Denies any AH/VH, no SI/HI, less paranoid about Insight/ Judgment: Improving - Time Spent With Patient Time Spent With Patient: 15" - Pending Discharge Pending Discharge Within 24 Hours: No Pending Discharge Within 48 Hours: No ICD10 Worksheet Patient Problems: Problems Problem Status Onset Bipolar disorder with severe mirella Acute Severe bipolar affective disorder with psychosis Acute
--- NOTE | 2017-10-01 15:58 | ASMTBHDC ---
Notes Note: Notes: Patient has been attending groups, is taking her medications and slept 5 hours last night. The plan is for patient to discharge on Tuesday. Her discharge plan is complete except information needs to be FAXED to her outpatient provider. Date Signed: 10/01/2017 03:58 PM Electronically Signed By:Christiana Kirk
[2017-10-01] MEDS: NICOTINE POLACRILEX 2 MG GUM B PRN (19:14)
[2017-10-01] MEDS: VITAMIN E ACETATE 400 UNIT PO SCH (19:17)
[2017-10-01] MEDS: DIVALPROEX ER 500 MG TAB PO SCH (20:20)
[2017-10-01] MEDS: DIVALPROEX ER 250 MG TAB PO SCH (20:20)
[2017-10-01] MEDS: OLANZapine 5 MG TAB PO SCH (20:20)
[2017-10-01] MEDS: LORazepam 1 MG TAB PO SCH (20:20)
[2017-10-02] MEDS: LEVOTHYROXINE 75 MCG TAB PO SCH (09:02)
[2017-10-02] MEDS: DULoxetine 20 MG CAP PO SCH (09:02)
[2017-10-02] MEDS: FUROSEMIDE 20 MG TAB PO SCH (09:02)
[2017-10-02] MEDS: VAYACOG PO SCH (09:35)
[2017-10-02] MEDS: ACETAMINOPHEN 500 MG TAB PO PRN ×2 (12:00→22:47)
[2017-10-02] MEDS: NICOTINE POLACRILEX 2 MG GUM B PRN ×2 (12:00→20:23)
[2017-10-02] MEDS: LORazepam 0.5 MG TAB PO PRN (14:07)
--- NOTE | 2017-10-02 15:21 | SOAPPROG ---
SOAP Progress Note Assessment/Plan: Assessment: Per Dr. Borden's notes: 09/28/17 17:12 Mood: Stabilizing. Tolerating VPA well. Will titrate VPA to 750mg, continue Zyprexa at 10mg for now due to continued delusions, monitor. 09/29/17 18:22 Mood: Improving with VPA. WIll CCM, check level on 10/02/17. Will reassess clinical status on 10/03/17 and finalize d/c plan. Subjective: Pt seen, discussed with staff. Interviewed alone, in treatment planning meeting and with daughter during visiting. She slept well last night, >7hrs. Continues to express concerns that her is acting against her in some way. She is not demonstrating any irritability and is compliant with all medications. She is able to discuss treatment plan and acquiesces to request for additional inpatient treatment. I explained our concern for the ongoing paranoia towards her primary caregiver that makes her feel unsafe in her home, the need to fully stabilize on VPA and check a level on Tuesday and the strong desire by all that she be adequately stable to d/c. Plan: 09/30/17 13:04 1. Patient less paranoid about , requesting a family meeting with him prior to d/c. She says he's the one who supervises her meds. 2. Patient c/o "grogginess" from VPA and Zyprexa. She denied any other physical complaints or SE's. 3. VPA level on Tuesday. 4. Possible d/c on Tuesday. 5. Voluntary 10/01/17 14:52 1. Patient had long visit with her daughter today. Some anxiety about going home. 2. CC to contact patient's to address d/c planning. 3. VPA level tomorrow. 4. Possible d/c on Tuesday. 10/02/17 15:18 1. VPA level was 82.1 this AM. 2. came for visit. He is worried what he will do if patient becomes manic again. 3. Patient less groggy. Tolerating meds without any complaints. 4. Likely to d/c home tomorrow. Subjective: Met with patient, reviewed chart and d/w staff. Patient had episode of urinary incontinence overnight. According to daughter, patient needs to be reminded to wear adult diapers at night, because she often forgets or refuses to wear them. When MD tried to talk to patient his AM, she said she was feeling "rushed." She was mildly frustrated b/c she needed to wait for RN to open laundry room so she could put her soiled pants in the wash. Patient had pleasant visit with her . She did not endorse any paranoia or concern about going home with him tomorrow. wanted to know what time to pick patient up tomorrow. MD advised CC will let patient know d/c time and can call as well if he would like. Objective: Vital Signs Temp Pulse Resp BP Pulse Ox 36.6 C 57 L 15 102/65 97 10/02/17 06:00 10/02/17 06:00 10/02/17 06:00 10/02/17 06:00 10/02/17 06:00 MSE: Affect: Euthymic Mood: "Rushed" "OK" TP: Tangential, confused at times TC: Denies SI/HI, no AH/VH Insight/Judgment: Fair - Time Spent With Patient Time Spent With Patient: 15" - Pending Discharge Pending Discharge Within 24 Hours: Yes Pending Discharge Within 48 Hours: No Pending Discharge Date: 10/03/17 (Likely to d/c on Tuesday home with ) Pending Discharge Time: 11:00 ICD10 Worksheet Patient Problems: Problems Problem Status Onset Bipolar disorder with severe mirella Acute Severe bipolar affective disorder with psychosis Acute
[2017-10-02] MEDS: OLANZapine 5 MG TAB PO SCH (20:15)
[2017-10-02] MEDS: LORazepam 1 MG TAB PO SCH (20:15)
[2017-10-02] MEDS: DIVALPROEX ER 250 MG TAB PO SCH (20:15)
[2017-10-02] MEDS: DIVALPROEX ER 500 MG TAB PO SCH (20:15)
[2017-10-02] MEDS: VITAMIN E ACETATE 400 UNIT PO SCH (20:16)
[2017-10-03 06:39] VITALS: BP 142/81
[2017-10-03] MEDS: DULoxetine 20 MG CAP PO SCH (08:57)
[2017-10-03] MEDS: FUROSEMIDE 20 MG TAB PO SCH (08:57)
[2017-10-03] MEDS: ACETAMINOPHEN 500 MG TAB PO PRN (08:57)
[2017-10-03] MEDS: LEVOTHYROXINE 75 MCG TAB PO SCH (10:07)
[2017-10-03] MEDS: VAYACOG PO SCH (10:07)
--- NOTE | 2017-10-03 12:42 | ASMTBHDC ---
Notes Note: Notes: CC meets with client's family and provider to discuss discharge, etc. No real barriers, follow up appts are confirmed. Family was ok with having client back in the home, etc. Follow up listed below: Follow Up with: [facility] Pato Montiel MD [address] [place] [address] [address] [address] ([phone]) Appointment Scheduled: 10/06/2017 @ 09:30AM Date Signed: 10/03/2017 12:41 PM Electronically Signed By:Cornelio Draper
--- NOTE | 2017-10-04 08:19 | ASDISCHSUM ---
Discharge Information Plan Status:Outpatient Psych Referrals Medically Cleared to Leave:10/03/2017 Discharge Date:10/03/2017 01:35 PM CM D/C Disposition:Home, Routine, Self-Care ADT D/C Disposition:Home, Routine, Self-Care Projected Discharge Date:10/03/2017 01:00 PM Transportation at D/C:Family Discharge Delay Reason: Follow-Up Date:10/06/2017 Discharge Slot: Final Diagnosis: Placement Information Referral Type:Outpatient Center/Clinic Referral ID:[id number] Provider Name: Address 1: Phone Number: Address 2: Fax Number: City: Selection Factors: State: Patient Contact Information Contact Name:CAN Relationship: Address: City: Alternate Phone: [facility]/Zip Code: Email: Financial Information Financial Class:Medicare Advantage Plans Primary Plan Desc:[place] ADV Primary Plan Number:[id number] Secondary Plan Desc: Secondary Plan Number: Assessment Information TLC Evaluation TLC Evaluation - Basic Information Evaluation Start Date and 09/26/2017 03:00 PM Time Hospital Status Answers: M1 Hold 72-hr M1 Hold Start Date 09/26/2017 01:50 PM and Time Patient statement Notes: "A manic episode." Narrative Notes: Pt is a 72 year old female presenting voluntarily with her daughter with worsening symptoms of mirella. Per daughter, for the past month, pt appears" normal one minute then depressed, delusional and psychotic" DOC states that pt becomes mistrusting of her HOC and believes her is going to kill her, will poison her food and does not want to take her medications if he gives them to her. DOC states that pt also has become paranoid around electronics. DOC states pt is unable to care for herself, not safe to be alone and her is not able to care for her. Per DOC, pt has long periods of stability and it appears her symptoms get worse every September and February. DOC states that pt recently had some med changes, but pt does not seem to be responding. DOC stated pt has had 3 psych evaluations in the past 2 weeks but she has not been hospitalized. Diagnosis History Notes: Pt has a hx of bipolar disorder. Prior suicide attempts Notes: Pt denies any prior SI and states she does not have SI now. DOC states that pt has made threats and written notes in the past. Prior hospitalizations Notes: Pt has a hx of 3 prior hospitalizations. The last one was 18 years ago. Treatment Responses Notes: Unk History of violence Notes: Pt denies any thoughts of HI. Psychiatrist: Dr Pato Stewart Medications (name, dosage, route, freq uency) Notes: Vayacog 310mg in AM; Levothyroxine .05 mg in AM; Cymbalta 20 mg in AM; Flurosemide 20 mg in AM; Tumeric 1 capsule in AM; Vitamin D3 2000 I.U. in PM;Cymbalta 20 mg in PM; Lorazepam 1 mg in PM; Vitamin E 400 I.U; Zyprexa 7.5 mg. Lorazepam .5 mg lunch and dinner. Tylenol PRN. Allergies/Reaction Notes: Aspirin, Lidocain and Novacaine Sleep Notes: WNL Appetite Notes: WNL Medical/Surgical history Notes: Pt reports a hx of arthritis, kidney disease ( advanced stages) and a "significant inflammatory disease) Pt has also had pneumonia twice. 4 years ago pt had to have surgery on an infected abscess she had on her lung after complications with pneumonia. 1 year ago, pt was hospitalized for high calcium levels for 10 days. Substance use history (frequency, intensity, his tory, duration) Notes: Pt denied any substance abuse hx. Pt stated she drinks ETOH on occasion. Utox was negative for all substances. Bal was .0. Family composition Notes: Pt's family consists of her adult daughter and . Need for family Answers: No participation in patient's care Family psychiatric/substance abuse history Notes: Pt stated her FOC "probally had bipolar, but it was never dx." Pt also reports that her paternal GMOC had bipolar disorder, although she was never dx. Developmental history Notes: Pt stated she grew up in [place] with both parents. Pt reports having a good relationship with her mother but not her father. Pt denies any childhood abuse. Pt reports she may have had concussions but was unable to give details. Abuse concerns Answers: None Marital status/children Notes: Pt has been for 50 years and has 1 adult daughter. Living situation Notes: Pt lives in [place] with her . Sexual history/orientation Notes: Heterosexual. Peer support/family strengths Notes: Pt stated, " Sometimes, I don't know." Education level/history Notes: Pt has a B.S in Education and a minor in science and social studies. Work history Notes: Pt is a retired elementary school professional. Notes: None Legal Notes: None reported. Christian/Spiritual Notes: None that would intefere with tx. Leisure Notes: Pt stated she enjoys reading. Collateral Notes: Daughter Taya. [facility] Evaluation - Mental Status Exam Appearance: Answers: Appropriate Eye Contact: Answers: Good/Direct Mood: Answers: Irritable Affect: Answers: Agitated Guarded Behavior: Answers: Uncooperative Speech: Answers: Relevant Thought Process: Answers: Distracted Insight: Answers: Poor Judgement: Answers: Poor Manic Signs/Symptoms Answers: Irritability Mood Swings Delusions: Answers: Paranoid Ideation Pt reported to have Answers: No suicidal/self-injuring ideation/behavior? Pt reported to be making Answers: No suicidal/self-injuring threats? Pt reported to have Answers: No aggression/assault ideation/behavior? Pt reported to be making Answers: No aggression/assault threats? Pt exhibits inability to Answers: Yes care for self/grave disability? Ideation/behavior is Answers: Yes chronic? Patient has a specific Answers: No plan? History of Answers: Yes suicidal/self-injuring ideation, behavior, or threats? History of Answers: No aggressive/assaultive ideation, behavior, or threats? History of serious Answers: No physical harm to self/others while in treatment setting? [facility] Evaluation - Suicide/Homicide Risk Suicide Risk Factors: Answers: < 20 or > 40 Years of Age Bipolar Disorder Rapid Mood Shifts Homicide/violence risk Answers: None factors: Current Suicidal Answers: No Ideation? Current Suicidal Ideation Answers: No in the Past 48 Hours? Current Suicidal Answers: No Ideation, Worst Ever? Suicide Internal Answers: Absence of Psychosis Protective Factors: Suicide External Answers: Responsibility to Protective Factors: Children Ranking of patient's Answers: Moderate suicidal risk: Ranking of patient's Answers: Low homicidal risk: TLC Evaluation - Wrap-up AXIS I Diagnosis (include DSM-V and ICD-10 codes), must also be entered in [email or web address], which is the source of truth. Notes: BIPOLAR I DISORDER, SEVERE 296.43 (F31.13) In consultation with [facility] ED physician, Jayla Jenkins MD , and on-call psychiatrist, Neil Borden MD, both concurred that pt appears to meet 27-65 criteria requiring psychiatric hospitalization as pt appears to be an imminent risk of harm to self/gravely disabled due to a mental illness condition. Pt was given the 3[facility] prohibited belongings list while in the ED. Evaluation End Date and 09/26/2017 10:00 PM Time (:MM): Date Signed: 09/26/2017 09:59 PM Electronically Signed By:Johnna Oneil TLC Discharge Disposition TLC Discharge Disposition Disposition: Answers: Admit Discharge Concerns/Recommendations: Notes: In consultation with [facility] ED physician, Jayla Jenkins MD , and on-call psychiatrist, Neil Borden MD, both concurred that pt appears to meet 27-65 criteria requiring psychiatric hospitalization as pt appears to be an imminent risk of harm to self/gravely disabled due to a mental illness condition. Pt was given the 3N prohibited belongings list while in the ED. Was patient given the Answers: Yes Inpatient Behavioral Health Prohibited Belongings List while in the ED? For inpatient Neil Borden MD admission, the following psychiatrist agreed to accept patient for admission to Behavioral Health ([facility]): Date and time M1 hold 09/26/2017 01:50 PM vacated (time format is :mm): Type of Hold: Answers: M1/72-hour Hold Hold initiated by: Answers: ED Physician Date Signed: 09/26/2017 10:00 PM Electronically Signed By:Johnna Oneil [facility] Master Treatment Plan Master Treatment Plan Master Treatment Plan Answers: Mood Instability with for: Psychosis Date: 09/27/2017 Diagnosis on Admission: Schizoaffective Disorder Expected length of stay: 3-5 days Reason for admission: Notes: Pt is a 72 yoa female brought to ED by daughter due to increased depression, delusional and psychotic symptoms, etc. DOC and HOC states that patient becomes mistrusting of them and client believes that they are trying to kill her. Client has an out-side provider Dr. Pato Stewart. Also, client has had three different psych evaluations in the past two weeks but she has not been hospitalized. Patient's stated presenting problems: Notes: I "couldn't answer that part." Patient's goals for treatment: Notes: To leave tomorrow Patient's strengths: Notes: none Identify supports outside of hospital: Notes: My daughter, & family Discharge criteria: Notes: Patient will demonstrate more stable mood by discharge. Initial disposition plan/considerations: Notes: "return home and don't know what to do do from there." Master Treatment Plan Required Signatures Psychiatrist signature: Answers: Psychiatrist: RN on-shift signature: Answers: RN: Patient signature: Answers: Patient: Date Signed: 09/27/2017 11:11 AM Electronically Signed By:Cornelio Draper [facility] CM Progress Note CM Note CM Note Notes: Pt. was taking a nap when CC entered her room. She reported not sleeping well last night after she was given Depakote She said that she was up until 2:15am and that she is very tired. She is going to discuss this with Dr. Borden as she thinks she was on the med. in the past and had the same reaction. She reported that she is too tired to continue with the conversation so CC left the room. Date Signed: 09/28/2017 01:19 PM Electronically Signed By:Destiny Leigh [facility] CM Progress Note CM Note CM Note Notes: Pt. reports feeling "fine". Pt.. stated she slept "like a dream". Pt. reports eating well and attending groups. Pt. reports no issues with her current medications, adding "it's getting better". Pt. stated she wants to discharge today when her visits. Pt. stated when she came into the hospital she was arguing with family, but stated "feel different today". Pt. denied SI, HI, AVH and paranoia. Date Signed: 09/29/2017 12:40 PM Electronically Signed By:Tabitha Rudolph [facility] Family Meeting Note Notes Note: Notes: Family meeting scheduled for TuesdayOctober 03 at 11:30am with pt., daughter of pt, HOC and staff. Date Signed: 09/29/2017 02:05 PM Electronically Signed By:Tabitha Rudolph [facility] Discharge Planning Note Notes Note: Notes: Follow Up: [facility] Pato Montiel MD [address], [place] [address] ([phone]) Appointment Scheduled: 10/06/2017 @ 09:30AM Date Signed: 09/30/2017 01:03 PM Electronically Signed By:Becca Rubin [facility] Discharge Planning Note Notes Note: Notes: Patient has been attending groups, is taking her medications and slept 5 hours last night. The plan is for patient to discharge on Tuesday. Her discharge plan is complete except information needs to be FAXED to her outpatient provider. Date Signed: 10/01/2017 03:58 PM Electronically Signed By:Christiana Kirk [facility] Discharge Planning Note Notes Note: Notes: CC meets with client's family and provider to discuss discharge, etc. No real barriers, follow up appts are confirmed. Family was ok with having client back in the home, etc. Follow up listed below: Follow Up with: [facility] Pato Montiel MD [address], [place] [address] ([phone]) Appointment Scheduled: 10/06/2017 @ 09:30AM Date Signed: 10/03/2017 12:41 PM Electronically Signed By:oCrnelio Draper Intervention Information
--- NOTE | 2017-10-04 15:02 | BDS ---
[f rep st] BEHAVIORAL HEALTH DISCHARGE SUMMARY REASON FOR ADMISSION: The patient is a 72-year-old female with a history of bipolar disord er. She was admitted to the hospital after having been referred by her primary outpatient psychiatri st, Dr. Pato Montiel, due to recurrent mirella. She apparently had had several months of increasing manic symptoms, and efforts to abort this with increasing doses of Zyprexa were ineffective. Her fa belkis was concerned due to her erratic behaviors, lack of sleep, and personality change. She had also become paranoid, fearing that her was attempting to harm her, and they felt she was no longe r safe at home. A full description of the events preceding admission can be found in her admission h istory dated 09/27/2017. ADMITTING DIAGNOSES: Bipolar I disorder, most recent episode manic, severe with psychosis. Chronic illness. Recurrent illness. Possible marital strife. Renal insufficiency. History of lithium toxic ity. ADMITTING PHYSICAL EXAMINATION: Performed by Dr. Jai Mittal revealed no acute physical findings. ADMISSION LABORATORY: CBC was normal. Serum chemistries were normal with the exception of a BUN up at 26 and creatinine up at 1.2. Calcium was slightly elevated at 10.5. Urine drug screen was positi ve for benzodiazepines. HOSPITAL COURSE: The patient was admitted to the behavioral health services inpatient unit initially on an M1 hold. She was pleasant and interactive, though pressured and somewhat disorganized. She d id talk a lot about the fear she had about her and the fact that she felt like he wanted to l eave her. She stated that he may have been poisoning her food as she feared that he was living an al ternative lifestyle and did not want her to be a part of it. I met with the family on the first day of hospitalization and reviewed her history at length. They stated that this is not unusual for her to have these ideas when she becomes manic, but that these were more prominent than they have noted i n the past. They also state that she has mood instability predictably in September every year around her birthday and then around Christmastime. They state, however, that this is more significant than she has had in many years and were concerned that she needed inpatient stabilization for the mirella. I di scussed with them and the patient potential medication treatments, and they were in agreement with co ntinuing her duloxetine at 20 mg daily, so essentially not to stop it completely. I discussed with cary almaraz the possibility that this was increasing her mirella, but that, if we were to initialize more effec tive mood stabilizing and anti-manic therapies, we could maintain the duloxetine in case we wanted to continue it as part of her ongoing outpatient regimen. She had previously been taking Wellbutrin al so, and this was discontinued. She had been taking Zyprexa in doses between 2.5 and 7.5 mg prior to admission, and I increase this on admission to 10 mg. I then also initiated therapy with Depakote st arting at 500 and increasing to 750 mg. She tolerated all the medicines well, though, as her mirella b marshall to resolve, she was experiencing increasing sedation during the day. We then decreased the Zypr exa from 10 to 5. The patient's level of Depakote drawn on 10/02/2017, was 82.1. The patient's hospitalization was uncomplicated. She gradually improved. Her sleep stabilized, and the manic symptoms abated. She did, however, continue to experience at least some level of the paran oid delusions. These remained focused on her and his intentions, though she said by the time of discharge that she was not afraid of him and did not believe she was unsafe at home. We had a bonnie tamayo meeting for discharge planning on the day of discharge, with her daughter and present. We discussed this in specific, and her daughter voiced concern that she had in the past not had ongoi ng psychotic symptoms after the resolution of her mirella. I discussed with them that it is more typic al for the psychotic symptoms to resolve with the mirella, but that it is possible for them to continue for a period afterward. I advised that she continue both the Depakote and the Zyprexa, and expected full resolution of the paranoid delusions over time. The patient's daughter and both stated that they felt she was safe to return home on the day of discharge. The daughter outlined an extens miesha plan to increase her community supports, activities, and also in-home supports to alleviate some of the caregiver burden from her . The patient was agreeable to this. CONDITION AT DISCHARGE: Stable. Her affect was euthymic, stable, and appropriate. She was sleeping greater than 6 hours per night and was compliant with medications, which she was tolerating well wit h no side effects. DISCHARGE MEDICATIONS: Zyprexa 5 mg p.o. at bedtime, Depakote 750 mg p.o. at bedtime, Cymbalta 20 mg daily, Lasix 20 mg daily, levothyroxine 75 mcg daily, Lorazepam 1 mg at bedtime, Vayacog 1 tablet da nic, and vitamin E 400 units at bedtime. She also chews some amount of nicotine gum, which she had b een doing for some time and was planning to continue. DISCHARGE DIAGNOSES: Bipolar I disorder, most recent episode manic, severe with psychosis. Chronic illness. Recurrent illness. DISPOSITION: The patient left the hospital with her family to return home. FOLLOWUP: Followup is with Dr. Pato Montiel on October 06 as scheduled by the care coordtamika negron. The patient's daughter discussed the possibility of obtaining an outpatient individual psycho therapist and/or group therapist to participate in some possible DBT programs. The daycare worker recommended that they first attempt to arrange this through Dr. Montiel's office as he may have colla boration with therapists in practice in the same facility, and then provided them with a list of othe r alternatives. LEGAL COURSE: The patient was converted to a voluntary status at the expiration of her M1 hold. The patient was a full code throughout her stay. The patient's attitude was bright and positive at the time of discharge. There were no labs or studies pending at the time of discharge. /[id number]/MODL
== END 2017-10-03 13:35 | disposition home or self-care (01) | DRG 885 ==
LOC: BBEH 18:40
PROVIDERS: ADMIT Psychiatry & Neurology Psychiatry; ATTEND Psychiatry & Neurology Psychiatry
DX: F31.2 Bipolar disorder, current episode manic severe with psychotic features (principal); E03.9 Hypothyroidism, unspecified; N18.9 Chronic kidney disease, unspecified
CPT/HCPCS: 80305; G0480